=== PATIENT | female | born 1955 | race Caucasian/White ===

== ENCOUNTER 2022-10-27 07:47 | Emergency (ER) | payer MEDICARE, MEDICAID ==
[~2022-10-27] VITALS: Ht 170.2 cm; Wt 56.7 kg
[2022-10-27 07:51] VITALS: BP 107/77
--- NOTE | 2022-10-27 07:51 | NUR ---
pt placed in bed 06 by amr
--- NOTE | 2022-10-27 07:54 | NUR ---
67 y/o female biba from home, c/o chest pain, nausea, perez 5/10 pain, and states she had a near syncopal episode. denies loc or trauma. amr placed 20g iv in left ac, no meds given at this time. a&ox4, ambulates with steady gait. lungs clear bl, respiration even and unlabored. heart sounds regular and even. skin pink/warm/dry. ermd made aware of status. pmh: copd allergy: levaquin, vicodin, darvon, keflex, penicillin med: peptobismol chew tab
--- NOTE | 2022-10-27 08:04 | NUR ---
pt swabbed for covid, flu at this time
[2022-10-27] MEDS ORDERED: NACL 0.9% 1,000 ML IV ONE (08:05)
[2022-10-27] MEDS ORDERED: ONDANSETRON 4 MG/2 ML VIAL IVP ONE (08:05)
[2022-10-27] MEDS ORDERED: MECLIZINE 25 MG TAB PO ONE (08:05)
--- NOTE | 2022-10-27 08:11 | NUR ---
LAB AT BEDSIDE
[2022-10-27 08:21] LABS: BASOPHILS % (AUTO) 0.9 % (0.0-2.0); EOSINOPHILS % (AUTO) 0.5 % (0.0-4.0); HEMATOCRIT 37.8 % (36-48); HEMOGLOBIN 12.6 g/dL (12.0-16.0); LYMPHOCYTES # (AUTO) 0.4 K/uL (2.5-16.5); LYMPHOCYTES % (AUTO) 9.3 % (20.5-51.1); MEAN CORPUSCULAR HEMOGLOBIN 27 pg (27-31); MEAN CORPUSCULAR HGB CONC 33 g/dL (33-37); MEAN CORPUSCULAR VOLUME 81.7 fL (80-94); MONOCYTES # (AUTO) 0.3 K/uL (0.8-1.0); MONOCYTES % (AUTO) 6.9 % (1.7-9.3); NEUTROPHILS # (AUTO) 3.2 K/uL (1.8-7.7); NEUTROPHILS % (AUTO) 82.4 % (42.2-75.2); PLATELET COUNT (AUTO) 134 K/uL (140-450); RED BLOOD CELL COUNT(AUTO) 4.63 MIL/uL (4.20-5.40); RED CELL DISTRIBUTION WIDTH 14.3 % (11.6-13.7); WHITE BLOOD COUNT (AUTO) 3.9 K/uL (4.8-10.8)
--- NOTE | 2022-10-27 08:36 | NUR ---
XRAY AT BEDSIDE
[2022-10-27 08:39] LABS: ALBUMIN 3.3 g/dL (3.4-5.0); ANION GAP 13.5 (8-16); ASPARTATE AMINOTRANSFERASE 17 U/L (15-37); CARBON DIOXIDE 30.3 mmol/L (21-32); CHLORIDE 100 mmol/L (98-107); CREATININE 0.8 mg/dL (0.6-1.3); GFR ARICAN-AMERICAN 92 mL/min (>90); GLUCOSE 99 mg/dL (74-106); POTASSIUM 3.8 mmol/L (3.5-5.1); SODIUM SERUM 140 mmol/L (136-145); TOTAL BILIRUBIN 0.2 mg/dL (0.0-1.0); UREA NITROGEN, BLOOD 11 mg/dL (7-18)
[2022-10-27 09:05] LABS: APPEARANCE,URINE HAZY (CLEAR); BILIRUBIN,URINE 1+ (NEGATIVE); BLOOD, URINE TRACE-I (NEGATIVE); COLOR,URINE YELLOW (YELLOW); LEUKOCYTE ESTERASE ,URINE TRACE (NEGATIVE); NITRITE, URINE NEGATIVE (NEGATIVE); UGLUCOSE NEGATIVE (NEGATIVE)
[2022-10-27 10:27] LABS: RBC,URINE NONE SEEN /HPF (0-5); YEAST,URINE Rare /HPF (None Seen)
[2022-10-27 10:47] VITALS: BP 84/52
--- NOTE | 2022-10-27 10:50 | NUR ---
orthostatic vitals reassessed. made aware
[2022-10-27] MEDS ORDERED: FLUCONAZOLE 100 MG TAB PO ONE (11:00)
[2022-10-27] MEDS ORDERED: NITR100C7 PO (11:01)
--- NOTE | 2022-10-27 11:10 | NUR ---
PT REQUESTING TO AMA. AMA FORM SIGNED
--- NOTE | 2022-10-27 11:15 | NUR ---
PT AMBULATED OUT TO [facility]. QUEEN[facility] GALLEGOS PROVIDED HOME
--- NOTE | 2022-10-27 11:40 | NUR ---
The patient's care was reviewed and supervised by [facility], RN.
== END 2022-10-27 11:08 | disposition left against medical advice (07) ==
LOC: MED 07:47
DX: R55 Syncope and collapse (principal); Z20.822 Contact with and (suspected) exposure to COVID-19; I95.9 Hypotension, unspecified; B37.31 Acute candidiasis of vulva and vagina; N30.90 Cystitis, unspecified without hematuria; J44.9 Chronic obstructive pulmonary disease, unspecified; F17.210 Nicotine dependence, cigarettes, uncomplicated
CPT/HCPCS: 36415; 71045; 80053; 81001; 84484; 85025; 87086; 87426; 87804; 93005; 96361; 96374; 99285; J2405; J7030; J8597

== ENCOUNTER 2024-03-18 22:26 | Emergency (ER) | payer MEDICARE, MEDICAID ==
[~2024-03-18] VITALS: Ht 170.2 cm; Wt 54.4 kg
[~2024-03-18 22:26] MED LIST: NITR100C7 PO
[2024-03-18 22:40] VITALS: BP 136/82; PULSE 78; RESP 17; TEMP 98.1; O2SAT 97
[2024-03-18 22:56] VITALS: BP 136/82; PULSE 78; RESP 17; TEMP 98.1; O2SAT 97
[2024-03-18] MEDS: KETOROLAC 30 MG/ML VIAL IM ONE (23:29)
[2024-03-18] MEDS: IBUPROFEN 600 MG TAB PO ONE (23:39)
[2024-03-18] MEDS: METOCLOPRAMIDE 10 MG TAB PO ONE (23:39)
[2024-03-19] MEDS ORDERED: IBUP-2213 PO (01:02)
[2024-03-19] MEDS ORDERED: METO-486 PO (01:02)
== END 2024-03-19 01:08 | disposition home or self-care (01) ==
LOC: MED 22:26
DX: M62.838 Other muscle spasm (principal); R42 Dizziness and giddiness; R11.0 Nausea; J44.9 Chronic obstructive pulmonary disease, unspecified; Z79.1 Long term (current) use of non-steroidal anti-inflammatories (NSAID); Z79.899 Other long term (current) drug therapy; Z88.0 Allergy status to penicillin; Z88.8 Allergy status to other drugs, medicaments and biological substances; Z88.5 Allergy status to narcotic agent
CPT/HCPCS: 70450; 99284; J8597

== ENCOUNTER 2024-09-09 06:47 | Emergency (ER) | payer OTHER, MEDICAID ==
[~2024-09-09] VITALS: Ht 170.2 cm; Wt 51.3 kg
[~2024-09-09 06:47] MED LIST changes: +IBUP-2213 PO; +METO-486 PO
[2024-09-09 07:20] VITALS: BP 134/81; PULSE 71; RESP 18; TEMP 98.4; O2SAT 96
[2024-09-09] MEDS: MECLIZINE 25 MG TAB PO ONE (08:09)
[2024-09-09] MEDS: KETOROLAC 30 MG/ML VIAL IM ONE (08:10)
[2024-09-09] MEDS: LIDOCAINE 5% 1 EA PATCH TP ONE (08:10)
[2024-09-09] MEDS ORDERED: LIDO-120 TP (09:02)
[2024-09-09] MEDS ORDERED: CYCL-711 PO (09:02)
[2024-09-09] MEDS ORDERED: MECL-303 PO (09:02)
== END 2024-09-09 09:13 | disposition home or self-care (01) ==
LOC: MED 06:47
DX: S39.012A Strain of muscle, fascia and tendon of lower back, initial encounter (principal); R42 Dizziness and giddiness; R03.0 Elevated blood-pressure reading, without diagnosis of hypertension; J44.9 Chronic obstructive pulmonary disease, unspecified; Z79.899 Other long term (current) drug therapy; Z88.0 Allergy status to penicillin; Z88.6 Allergy status to analgesic agent; Z88.1 Allergy status to other antibiotic agents; Z88.5 Allergy status to narcotic agent; X58.XXXA Exposure to other specified factors, initial encounter; Y92.89 Other specified places as the place of occurrence of the external cause; Y93.89 Activity, other specified; Y99.8 Other external cause status
CPT/HCPCS: 96372; 99283; J1885; J8597